=== PATIENT | female | born 2000 | race African-American/Black ===

== ENCOUNTER 2019-06-29 18:23 | Emergency (ER) | payer MEDICAID ==
[~2019-06-29] VITALS: Ht 165.1 cm; Wt 54.5 kg
--- NOTE | 2019-06-29 19:05 | NUR ---
1L NS COMPLETED PATIENT MEDICATED PER EMAR- TO WALK HOME TO DORM 1 BLOCK AWAY
[2019-06-29 19:30] LABS: MICROSCOPIC NOT IND
[2019-06-29 19:34] LABS: CULTURE INDICATED? NO
--- NOTE | 2019-06-29 19:42 | NUR ---
PROVIDER MADE AWARE OF PATIENT WANTING TO BE CHECK ED FOR STI'S (PATIENT ONLY HAS ONE PARTNER-BUT SHE DOES NOT TRUST THAT PARTNER)
--- NOTE | 2019-06-29 19:42 | NUR ---
DISREGARD NOTE WRITTEN AT 1905-PATIENT DID NOT RECEIVE IVF
[2019-06-29 19:58] LABS: ALBUMIN 4.4 g/dL (3.4-5.0); ANION GAP 9 mmol/L (5-15); CALCIUM 9.5 mg/dL (8.5-10.1); CHLORIDE 108 mmol/L (98-107); CREATININE 0.68 mg/dL (0.55-1.02)
[2019-06-29 20:05] LABS: MEAN CORPUSCULAR HEMOGLOBIN 30.1 pg (27.0-34.8); MEAN CORPUSCULAR HGB CONC 32.9 g/dL (32.4-35.8); MEAN CORPUSCULAR VOLUME 91.3 fL (80-100); MEAN PLATELET VOLUME 9.1 fL (7.4-10.4); PLATELET COUNT 215 x10^3/uL (130-400); RED BLOOD COUNT 4.47 x10^6/uL (3.82-5.3); RED CELL DISTRIBUTION WIDTH 13.3 % (9.6-15.2)
[2019-06-29 20:33] LABS: BASOPHILS # (AUTO) 0.01 x10^3/uL (0-0.1); BASOPHILS % (AUTO) 0 % (0-1); EOSINOPHILS # (AUTO) 0.04 x10^3/uL (0-0.4); EOSINOPHILS % (AUTO) 1 % (1-7); LYMPHOCYTES # (AUTO) 0.95 x10^3/uL (1-3.4); LYMPHOCYTES % (AUTO) 31 % (22-44); MD SCAN; MONOCYTES % (AUTO) 7 % (2-9); NEUTROPHILS # (AUTO) 1.91 x10^3/uL (1.8-6.8); NEUTROPHILS % (AUTO) 61 % (42-75)
--- NOTE | 2019-06-29 20:54 | NUR ---
PELVIC PERFORMED BY LINE ASSIGNER & FEMALE CAE ENGINEER
[2019-06-29 21:03] LABS: CLUE CELLS NONE SEEN (NONE SEEN)
[2019-06-29 21:04] LABS: WET PREP WBCS FEW (FEW)
[2019-06-29] MEDS ORDERED: CEFTRIAXONE 250 MG IM ONE (21:30)
[2019-06-29] MEDS ORDERED: AZITHROMYCIN 500 MG TABLET PO ONE (21:30)
[2019-06-29] MEDS ORDERED: CEFTRIAXONE 250 MG ONE (21:33)
[2019-06-29] MEDS ORDERED: AZITHROMYCIN 500 MG TABLET ONE (21:33)
[2019-06-29] MEDS ORDERED: LIDOCAINE-MPF 1%, 2ML ONE (21:33)
[2019-06-29 21:49] VITALS: BP 108/56
== END 2019-06-29 22:02 | disposition home or self-care (01) ==
LOC: ED 19:33
DX: R10.2 Pelvic and perineal pain (principal)
CPT/HCPCS: 36415; 76830; 80048; 81003; 82040; 84703; 85025; 87210; 87491; 87591; 87808; 96372; 99284; J0696

== ENCOUNTER 2020-06-08 02:38 | Emergency (ER) | payer MEDICAID, OTHER ==
[~2020-06-08] VITALS: Ht 165.1 cm; Wt 56.4 kg
[2020-06-08] MEDS ORDERED: ONDANSETRON 2MG/ML, 2ML IVPush ONE (03:00)
[2020-06-08] MEDS ORDERED: MORPHINE SULFATE 4 MG/ML, 1ML IVPush PRN (03:00)
[2020-06-08] MEDS ORDERED: ONDANSETRON 2MG/ML, 2ML ONE (03:07)
[2020-06-08] MEDS ORDERED: MORPHINE SULFATE 4 MG/ML, 1ML ONE (03:07)
--- NOTE | 2020-06-08 03:16 | NUR ---
PT PRESENTS WITH RLQ ABD PAIN X THREE HOURS. DENIES N/V/D/DYSURIA/VAGINAL DC OR BLEEDING. LMP: "ABOUT TWO MONTHS AGO", + TEST, . PIV PLACED, LABS DRAWN AND PT MEDICATED FOR PAIN PER EMAR. PT QUICKLY TAKEN TO ULTRASOUND.
[2020-06-08 03:17] LABS: BASOPHILS % (AUTO) 0 % (0-1); EOSINOPHILS % (AUTO) 1 % (1-7); LYMPHOCYTES % (AUTO) 17 % (22-44); MEAN CORPUSCULAR HEMOGLOBIN 30.1 pg (27.0-34.8); MEAN CORPUSCULAR HGB CONC 33.3 g/dL (32.4-35.8); MEAN PLATELET VOLUME 8.7 fL (7.4-10.4); MONOCYTES % (AUTO) 5 % (2-9); NEUTROPHILS % (AUTO) 77 % (42-75); PLATELET COUNT 224 x10^3/uL (130-400); RED BLOOD COUNT 4.29 x10^6/uL (3.82-5.3)
[2020-06-08 03:21] LABS: MD NO
[2020-06-08 03:22] LABS: MICROSCOPIC INDICATED
[2020-06-08 03:28] LABS: ALANINE AMINOTRANSFERASE 8 U/L (12-78); ALBUMIN 4.5 g/dL (3.4-5.0); ANION GAP 11 mmol/L (5-15); CALCIUM 8.9 mg/dL (8.5-10.1); CHLORIDE 110 mmol/L (98-107); CREATININE 0.96 mg/dL (0.55-1.02)
[2020-06-08 03:33] LABS: ALKALINE PHOSPHATASE 62 U/L (45-117); BILIRUBIN,TOTAL 0.2 mg/dL (0.2-1.0); TOTAL PROTEIN 8.4 g/dL (6.4-8.2)
--- NOTE | 2020-06-08 04:12 | NUR ---
PT RESTING ON GURNEY. STATES PAIN IS GONE AFTER PAIN MEDS
--- NOTE | 2020-06-08 04:43 | NUR ---
pt to [place]
[2020-06-08] MEDS ORDERED: OMNIPAQUE 350 MG/ML, 100ML BOTTLE ONE (05:13)
[2020-06-08 05:37] VITALS: BP 92/47
--- NOTE | 2020-06-08 05:50 | NUR ---
PT RESTING ON GURNEY. DENIES PAIN.
== END 2020-06-08 06:25 | disposition home or self-care (01) ==
LOC: ED 05:30
DX: N83.292 Other ovarian cyst, left side (principal); R10.31 Right lower quadrant pain
CPT/HCPCS: 36415; 74177; 76801; 80053; 81001; 84702; 85025; 96374; 96375; 99285; J2270; J2405; Q9967

== ENCOUNTER 2020-09-04 16:47 | Emergency (ER) | payer MEDICAID ==
[~2020-09-04] VITALS: Ht 165.1 cm; Wt 57.2 kg
[2020-09-04 18:09] LABS: BASOPHILS % (AUTO) 1 % (0-1); EOSINOPHILS % (AUTO) 3 % (1-7); LYMPHOCYTES % (AUTO) 39 % (22-44); MEAN CORPUSCULAR HEMOGLOBIN 30.1 pg (27.0-34.8); MEAN CORPUSCULAR HGB CONC 33.8 g/dL (32.4-35.8); MEAN PLATELET VOLUME 7.8 fL (7.4-10.4); MONOCYTES % (AUTO) 8 % (2-9); NEUTROPHILS % (AUTO) 49 % (42-75); PLATELET COUNT 253 x10^3/uL (130-400); RED BLOOD COUNT 4.16 x10^6/uL (3.82-5.3); RED CELL DISTRIBUTION WIDTH 13.1 % (9.6-15.2)
[2020-09-04 18:10] LABS: MD NO
[2020-09-04 18:20] LABS: ALBUMIN 4.2 g/dL (3.4-5.0); ANION GAP 5 mmol/L (5-15); CALCIUM 9.4 mg/dL (8.5-10.1); CHLORIDE 112 mmol/L (98-107); CREATININE 0.72 mg/dL (0.55-1.02)
--- NOTE | 2020-09-04 19:43 | NUR ---
PT BACK FROM IMAGING, STATES THAT SHE EMPTIED HER BLADDER AT IMAGING AND CURRENTLY CAN PROVIDE A URINE SAMPLE. PT IN BED WITH NO SIGNS OR SYMPTOMS OF ACUTE DISTRESS NOTED RESPIRATIONS EVEN AND UNLABORED
[2020-09-04 20:48] LABS: MICROSCOPIC INDICATED
[2020-09-04 21:36] VITALS: BP 104/65
== END 2020-09-04 21:38 | disposition home or self-care (01) ==
LOC: ED 20:09
DX: R10.30 Lower abdominal pain, unspecified (principal); R10.9 Unspecified abdominal pain; R51.9 Headache, unspecified; R10.2 Pelvic and perineal pain
CPT/HCPCS: 36415; 76830; 80048; 81001; 82040; 84702; 85025; 87086; 99285